=== PATIENT | male | born 1980 | race African-American/Black ===

== ENCOUNTER 2017-07-15 05:40 | Emergency (ER) | payer OTHER, BC ==
--- NOTE | 2017-07-15 08:03 | RAD ---
LEFT KNEE 4 VIEWS: Date: 07/15/17 HISTORY: 36-year-old male with some left knee pain. FINDINGS: There is some moderate clothes artifact over the knee. No evidence for acute fracture or dislocation. IMPRESSION: Unremarkable left knee. POS: [facility]
== END 2017-07-15 07:45 | disposition home or self-care (01) ==
LOC: ERS 05:40
DX: S83.92XA Sprain of unspecified site of left knee, initial encounter (principal); S23.3XXA Sprain of ligaments of thoracic spine, initial encounter; S80.11XA Contusion of right lower leg, initial encounter; F17.200 Nicotine dependence, unspecified, uncomplicated; V53.6XXA Passenger in pick-up truck or van injured in collision with car, pick-up truck or van in traffic accident, initial encounter